=== PATIENT | female | born 1975 | race Caucasian/White ===

== ENCOUNTER → 2018-07-06 18:06 | Outpatient (CLI) | payer OTHER, SELFPAY ==
[2018-07-06 15:48] VITALS: BMI 27.3
[2018-07-09 08:22] LABS: HPV APTIMA, High Risk Negative (Negative)
== END ==
PROVIDERS: Referring Provider Obstetrics & Gynecology; Visit Provider Obstetrics & Gynecology
DX: Z12.4 Encounter for screening for malignant neoplasm of cervix (principal)
CPT/HCPCS: 87624; 88175; G0145

== ENCOUNTER 2019-02-28 15:32 | Emergency (ER) | payer OTHER, SELFPAY ==
[2018-07-06 15:48] VITALS: BMI 27.3
[2019-02-28 15:33] VITALS: BP 164/95; PULSE 97; RESP 19; TEMP 37.2; O2SAT 100; BMI 29.0
--- NOTE | 2019-02-28 16:54 | NURSING ---
NO OLD EKGS
--- NOTE | 2019-02-28 17:02 | EKG12_ITS ---
Test Reason : SYNCOPE Blood Pressure : / mmHG Vent. Rate : 095 BPM Atrial Rate : 095 BPM P-R Int : 158 ms QRS Dur : 088 ms QT Int : 348 ms P-R-T Axes : 049 038 056 degrees QTc Int : 437 ms Normal sinus rhythm Normal ECG Confirmed by SERVANDO GALLO, JAZMINE ([id number]), desk editor BHAVESH CHILDS ([id number]) on 03/02/2019 11:06:28 AM Referred By: WAYNE Confirmed By:JAZMINE AL MD
--- NOTE | 2019-02-28 17:02 | CT_ITS ---
STUDY: CT BRAIN WITHOUT CONTRAST REASON FOR EXAM: Female, 43 years old. Syncope, weakness RADIATION DOSAGE (If Supplied By Facility): CTDIvol = ( 44.99 ) mGy, DLP = ( 745.49 ) mGycm TECHNIQUE: Transaxial CT imaging of the brain was performed without administration of intravenous contrast material. Individualized dose optimization techniques were used for this CT. COMPARISON: No relevant priors. FINDINGS: Normal soft tissue structures. Normal calvarium. Normal size ventricles and extra-axial spaces for the patient's age. Normal white matter tracts of the cerebral hemispheres. Normal basal ganglia and thalami. Normal brainstem. Normal cerebellum. There is no intracranial hemorrhage. There are no findings of an acute ischemic infarction. There is a polypoid filling defect of the right maxillary sinus. CT/Brain/Head without Contrast IMPRESSION: Polypoid filling defect of the right maxillary sinus consistent with a mucoid retention cyst. There is no evidence of intracranial hemorrhage or acute infarct. Electronically Signed: Mason Connor MD at 17:49 EST , Service support ,
--- NOTE | 2019-02-28 17:04 | ED.DCSUM_ITS ---
History of Present Illness Chief Complaint: Syncope Detail of Chief Complaint: Syncope, generalized weakness Informant: Patient Onset: Yesterday Current Severity: Mild Maximum Severity: Mild Narrative: Patient states she got up in the middle the night last night to go check on her daughter. She was walking to her daughter's room she began to feel very funny and as if she might pass out. She turned around to go back to her room but reportedly fell to the floor. reportedly heard a thud and found her unconscious on the floor. He told her it took about 30 seconds for her to wake up. She states that she has a headache and just feels generally weak today. Past Medical History - Allergies and Home Meds Allergies/Adverse Reactions: Allergies No Known Allergies Allergy (Unverified 07/06/18 15:48) Prior records reviewed: Yes Past Medical History: - Lives: With Family Smoking Status: Never smoker Review of Systems General: Denies: Chills, Fever Eyes: Denies: Visual changes - bilaterally ENT: Denies: Bilateral ear pain, Sore throat Cardiovascular: Denies: Chest pain, Palpitations Respiratory: Denies: Dyspnea, Cough Gastrointestinal: Denies: Abdominal pain, Nausea, Vomiting, Diarrhea Musculoskeletal: Reports: Myalgias Neurological: Reports: Headache, Weakness - Generalized weakness Physical Exam Vital Signs/Narrative: Vital Signs Temp Pulse Resp BP Pulse Ox 02/28/19 15:33 98.9 F 97 19 H 164/95 H 100 Inital Vital Signs reviewed: Yes General: Well nourished, Well developed Head: - - Small hematoma to right upper forehead. ENT: Moist mucous membranes Neck: Supple Cardiovascular: Regular rate, Regular rhythm Respiratory: No distress, CTA bilaterally, Chest nontender Abdomen: Soft, Nontender Extremities: - - Abrasion to left anterior knee with no bony tenderness. Neurological: Alert, Oriented x3, Normal Strength, Normal Sensation Psychological: Normal affect Diagnostic/Tx/Re-eval Impressions Brain CT 02/28/19 17:02 IMPRESSION: Polypoid filling defect of the right maxillary sinus consistent with a mucoid retention cyst. There is no evidence of intracranial hemorrhage or acute infarct. Electronically Signed: Mason Connor MD at 17:49 EST , Service support , 02/28/19 17:02 Brain/Head without Contrast [CT] Stat Laboratory Results 02/28/19 02/28/19 02/28/19 17:21 17:21 18:22 WBC 7.4 RBC 4.80 Hgb 14.0 Hct 40.5 MCV 84.4 MCH 29.2 MCHC 34.6 RDW Std Deviation 37.7 RDW Coeff of Pee 12.5 Plt Count 257 MPV 10.5 Immature Gran % (Auto) 0.300 Neut % (Auto) 62.7 Lymph % (Auto) 28.3 [place] % (Auto) 6.9 Eos % (Auto) 1.5 Baso % (Auto) 0.3 Absolute Neuts (auto) 4.7 Absolute Lymphs (auto) 2.10 Nucleated RBC % 0 Sodium 140 Potassium 3.5 Chloride 108 H Carbon Dioxide 27.0 Anion Gap 5 BUN 9 Creatinine 0.70 Estim Creat Clear Calc 91.33 Est GFR (MDRD) Af Amer 119 Est GFR (MDRD) Non-Af 98 BUN/Creatinine Ratio 12.9 Glucose 98 Calcium 8.8 Urine Color Urine Clarity Urine pH Ur Specific Elizabeth Urine Protein Urine Glucose (UA) Urine Ketones Urine Occult Blood Urine Nitrite Urine Bilirubin Urine Urobilinogen Ur Leukocyte Esterase Urine RBC Urine WBC Ur Squamous Epith Cells Urine Bacteria Urine Mucus Urine Test Negative 02/28/19 18:22 WBC RBC Hgb Hct MCV MCH MCHC RDW Std Deviation RDW Coeff of Pee Plt Count MPV Immature Gran % (Auto) Neut % (Auto) Lymph % (Auto) [place] % (Auto) Eos % (Auto) Baso % (Auto) Absolute Neuts (auto) Absolute Lymphs (auto) Nucleated RBC % Sodium Potassium Chloride Carbon Dioxide Anion Gap BUN Creatinine Estim Creat Clear Calc Est GFR (MDRD) Af Amer Est GFR (MDRD) Non-Af BUN/Creatinine Ratio Glucose Calcium Urine Color Yellow Urine Clarity Clear Urine pH 8.0 Ur Specific Elizabeth 1.010 Urine Protein Negative Urine Glucose (UA) Normal Urine Ketones Negative Urine Occult Blood Negative Urine Nitrite Negative Urine Bilirubin Negative Urine Urobilinogen Normal Ur Leukocyte Esterase 25 H Urine RBC 0 SEEN Urine WBC 0-5 SEEN Ur Squamous Epith Cells 0-5 SEEN Urine Bacteria 0 SEEN Urine Mucus 0 SEEN Urine Test - EKG Initial EKG Interpretation: Sinus Rhythm - Sinus at 95 with no acute ischemia. - Medical Decision Making Patient declined IV fluids here. She is drinking p.o. Test results are discussed with her. At this time I see no serious cause for her syncopal event. She was encouraged to return if she feels worse or she develops palpitations. She will follow-up with her primary care physician. ED Disposition - Plan for ED Patient: Disposition: Home or Assisted Living Diagnosis: Syncope Instructions: SYNCOPE, Unk Cause Referrals: Madelaine Coello, REDUCING MACHINE OPERATOR-C [Primary Care Provider] - As soon as possible
--- NOTE | 2019-02-28 17:26 | ED.RN ---
PT REQUESTING TO HOLD OFF ON IV FLUIDS AT THIS TIME. DR VILLAREAL NOTIFIED
[2019-02-28 17:43] LABS: Absolute Neutrophil Count 4.7 X10^3/uL (2.0-7.7); Basophil# 0.02 X10^3/uL; Basophil% 0.3 % (0-1); Eosinophil# 0.11 X10^3/uL; Eosinophils% 1.5 % (0-5); Hematocrit 40.5 % (37-47); Lymphocyte % 28.3 % (19-41); Mean Corp Hgb Conc 34.6 g/dL (32-36); Mean Corpuscular Hgb 29.2 pg (27.0-32.0); Mean Corpuscular Volume 84.4 fL (81-99); Mean Platelet Vol. 10.5 fl (6.2-12.0); Monocyte# 0.51 X10^3/uL; Monocyte% 6.9 % (0-10); NRBC Flagged by Analyzer 0 % (0-5); Neutrophil # 4.67 X10^3/uL (2.7-7.7); Neutrophil % 62.7 % (47-70); Platelet Count 257 K/mm3 (150-450); RBC Distribution Width CV 12.5 % (11.6-14.6); RBC Distribution Width SD 37.7 fl (35.1-43.9); White Blood Count 7.4 K/mm3 (4.4-11.0)
[2019-02-28 17:45] LABS: Anion Gap 5 (5-15); BUN 9 mg/dL (7-18); BUN/Creat Ratio 12.9 RATIO (10-20); Calcium,Total 8.8 mg/dL (8.5-10.1); Chloride 108 mmol/L (98-107); EST Glomerular Filtration Rate 98 mL/min (>60); Est Glom Filt Rate - Afr Amer 119 mL/min (>60); Estimated Creatinine Clearance 91.33 ml/min; Glucose 98 mg/dL (74-106); Potassium 3.5 mmol/L (3.5-5.1); Sodium Level 140 mmol/L (136-145)
[2019-02-28 18:09] VITALS: BP 132/85; PULSE 97; RESP 19; O2SAT 98
[2019-02-28 18:31] LABS: Bacteria 0 SEEN /hpf (None Seen); Mucous, Urine 0 SEEN /hpf (<or=2+); Red Blood Cells-Urine 0 SEEN /hpf (0-5)
[2019-02-28 18:37] LABS: Internal QC Validated? YES +Cl - CLEAR BKGD; Pregnancy, Urine Negative Negative
[2019-02-28 19:01] LABS: Glucose, Dipstick Normal (Normal); Ketone-Dipstick Negative (Negative); Leukocyte Esterase-Dipstick 25 /ul (Negative); Nitrite-Dipstick Negative (Negative); Occult Blood-Urine Negative /ul (Negative); Protein-Dipstick Negative (Negative); Urine Bilirubin Dipstick Negative (Negative); Urine Urobilinogen Normal (Normal)
[2019-02-28 19:02] LABS: Color, Urine Yellow (Yellow); Urine Clarity Clear (Clear)
[2019-02-28 19:03] LABS: Squamous Epithelial Cells - UA 0-5 SEEN /hpf (5-10); White Blood Cells 0-5 SEEN /hpf (0-5)
[2019-02-28 19:27] VITALS: BP 117/70; PULSE 83; RESP 15; O2SAT 98
== END 2019-02-28 19:30 | disposition home or self-care (01) ==
PROVIDERS: Emergency Provider Emergency Medicine; Family Provider Nurse Practitioner Family; PCP Nurse Practitioner Family
DX: R55 Syncope and collapse (principal); R51 Headache; R53.1 Weakness; M79.10 Myalgia, unspecified site; S80.212A Abrasion, left knee, initial encounter; X58.XXXA Exposure to other specified factors, initial encounter; Y93.9 Activity, unspecified; Y92.9 Unspecified place or not applicable; Y99.9 Unspecified external cause status
CPT/HCPCS: 70450; 80048; 81001; 81025; 85025; 93005; 99284; A4216

== ENCOUNTER 2020-05-23 12:54 | Emergency (ER) | payer OTHER, SELFPAY ==
[2020-05-23 12:55] VITALS: BP 157/94; PULSE 114; RESP 17; TEMP 36.9; O2SAT 100; BMI 30.5
[2020-05-23 13:03] VITALS: BP 160/115; PULSE 115; RESP 17; O2SAT 100
--- NOTE | 2020-05-23 13:18 | RAD_ITS ---
STUDY: X-RAY CHEST REASON FOR EXAM: Female, 44 years old. CHEST TIGHTNESS TECHNIQUE: Single AP portable view of the chest. COMPARISON: Comparison is made with prior examination of 03/02/2017. FINDINGS: EKG electrodes are seen. The lungs are clear and expanded. There is no demonstrated pleural abnormality. Normal size heart. Normal mediastinum and keyla. Normal visualized pulmonary arteries. Normal visualized aortic arch and descending thoracic aorta. Normal visualized thoracic spine. Normal visualized ribs, clavicles, and shoulders. There is no demonstrated abnormality of the visualized soft tissue structures of the upper abdomen. RAD/Chest 1 View (Portable) IMPRESSION: Normal x-ray examination of the chest. Electronically Signed: Jeovany Anne MD at 13:58 EST , Service support ,
--- NOTE | 2020-05-23 13:18 | EKG12_ITS ---
Test Reason : CP Blood Pressure : / mmHG Vent. Rate : 117 BPM Atrial Rate : 117 BPM P-R Int : 128 ms QRS Dur : 084 ms QT Int : 312 ms P-R-T Axes : 014 036 053 degrees QTc Int : 435 ms Sinus tachycardia Otherwise normal ECG Confirmed by RUBY GALLO, MARBELLA ([id number]), editor farm journal BHAVESH CHILDS ([id number]) on 05/28/2020 11:03:59 AM Referred By: HUMBERTO Confirmed By:CAROLA BELTRAN MD
--- NOTE | 2020-05-23 13:19 | ED.VIS.GEN ---
History of Present Illness Chief Complaint: Chest Pain Informant: Patient Narrative: 44-year-old female presenting with chest pain which she describes as sharp and heavy at times. She states that it started yesterday at rest. States it feels like her heart is racing at times. Patient denies any medical problems except for allergies. She has the same cough she is always had without change. No fever, chills, body aches, loss of taste or smell. Patient has had no cardiac history or history of pulmonary embolism. Past Medical History - Allergies and Home Meds Allergies/Adverse Reactions: Allergies No Known Allergies Allergy (Verified 05/23/20 12:55) Primary Care Physician: NOT,DEFINED [NON-STAFF] - Prior records reviewed: Yes Past Medical History: None Surgical History: noncontributory Lives: Spouse/ Significant Other Smoking Status: Never smoker Alcohol: None Drugs: None Review of Systems General: Denies: Chills, Fever, Sweats Eyes: Denies: Visual changes - bilaterally, Diplopia ENT: Denies: Rhinorrhea, Sore throat Cardiovascular: Reports: Chest pain, Heart racing. Denies: Palpitations Respiratory: Denies: Dyspnea, Cough, Sputum Gastrointestinal: Denies: Abdominal pain, Nausea, Vomiting Genitourinary: Denies: Dysuria, Hematuria Musculoskeletal: Denies: Myalgias, Arthralgias, Back pain, Swelling, Extremity Pain Skin: Denies: Rash, Abscess Neurological: Denies: Headache, Weakness, Parasthesia, Numbness Psych: Denies: Depression, Anxiety Physical Exam Vital Signs/Narrative: Vital Signs Temp Pulse Resp BP Pulse Ox 05/23/20 13:03 115 H 17 160/115 H 100 05/23/20 12:55 98.4 F 114 H 17 157/94 H 100 Inital Vital Signs reviewed: Yes General: Well nourished, No Acute Distress Head: Normocephalic, Atraumatic Eyes: Perrl, EOMI ENT: Moist mucous membranes, No rhinorrhea Cardiovascular: Regular rate, Regular rhythm Respiratory: No distress, CTA bilaterally, Chest nontender Extremities: Nontender, No edema Skin: Normal color, No rash. Negative for: Cyanosis, Diaphoresis Neurological: Alert, Oriented x3, Cranial nerves II-XII grossly intact Psychological: Normal affect, Normal Mood Diagnostic/Tx/Re-eval - Rhythm Strip Rhythm Strip: Sinus Rhythm Rate: 117 - EKG Initial EKG Interpretation: Sinus Rhythm, No Acute Injury Pattern - Medical Decision Making 44-year-old female presenting with chest pain. She has had it since last night. Has been intermittent and is sometimes heavy and sometimes sharp stabbing. Patient had EKG performed on arrival which shows a sinus rhythm at 117/min without any signs of ischemic change as interpreted by myself. Chest x-ray shows no acute process as interpreted by myself. Radiology agrees. Lab work is unremarkable. Troponin negative. D-dimer is negative. Patient will have repeat troponin at 3-hour cris as well as EKG. Patient will be signed out to incoming ED doc for follow-up on this. If this is all normal patient will be discharged home in stable condition. Impression: 1. Chest pain ED Disposition - Plan for ED Patient: Referrals: NOT,DEFINED [NON-STAFF] -
[2020-05-23] MEDS: Aspirin 81 MG TAB.CHEW 324 MG PO (13:36)
[2020-05-23 13:45] LABS: Absolute Lymphocyte Count 1.44 X10^3/uL (0.83-4.51); Absolute Neutrophil Count 3.9 X10^3/uL (2.0-7.7); Basophil# 0.02 X10^3/uL; Basophil% 0.3 % (0-1); Eosinophil# 0.07 X10^3/uL; Eosinophils% 1.2 % (0-5); Hematocrit 41.4 % (37-47); Hemoglobin 14.4 g/dL (12.0-15.0); Lymphocyte # 1.44 X10^3/ul (4.0); Mean Corp Hgb Conc 34.8 g/dL (32-36); Mean Corpuscular Hgb 29.1 pg (27.0-32.0); Mean Corpuscular Volume 83.6 fL (81-99); Mean Platelet Vol. 10.4 fl (6.2-12.0); Monocyte# 0.35 X10^3/uL; Monocyte% 6.1 % (0-10); NRBC Flagged by Analyzer 0 % (0-5); Neutrophil # 3.88 X10^3/uL (2.7-7.7); Neutrophil % 67.2 % (47-70); Platelet Count 260 K/mm3 (150-450); RBC Distribution Width CV 12.5 % (11.6-14.6); RBC Distribution Width SD 37.8 fl (35.1-43.9); Red Blood Count 4.95 M/mm3 (4.2-5.4); White Blood Count 5.8 K/mm3 (4.4-11.0)
[2020-05-23 14:03] LABS: Anion Gap 5 (5-15); BUN 7 mg/dL (7-18); BUN/Creat Ratio 9.7 RATIO (10-20); Calcium,Total 8.6 mg/dL (8.5-10.1); Chloride 107 mmol/L (98-107); Creatinine, Serum 0.72 mg/dL (0.55-1.02); EST Glomerular Filtration Rate 94 mL/min (>60); Est Glom Filt Rate - Afr Amer 114 mL/min (>60); Glucose 94 mg/dL (74-106); Potassium 3.2 mmol/L (3.5-5.1); Sodium Level 139 mmol/L (136-145)
[2020-05-23 14:37] LABS: D-Dimer Quantitative (DVT/PE) <= 0.27 FEU/ug/m (0.27-0.49)
[2020-05-23 14:56] VITALS: BP 133/93; PULSE 89; RESP 14; O2SAT 97
--- NOTE | 2020-05-23 16:45 | EKG12_ITS ---
Test Reason : REPEAT CP Blood Pressure : / mmHG Vent. Rate : 086 BPM Atrial Rate : 086 BPM P-R Int : 134 ms QRS Dur : 086 ms QT Int : 364 ms P-R-T Axes : -07 014 038 degrees QTc Int : 435 ms Normal sinus rhythm Normal ECG Confirmed by RUBY GALLO, MARBELLA ([id number]), general expeditor BHAVESH CHILDS ([id number]) on 05/28/2020 11:09:19 AM Referred By: HUMBERTO Confirmed By:CAROLA BELTRAN MD
[2020-05-23 17:23] VITALS: BP 144/106; PULSE 94; RESP 16; O2SAT 98
--- NOTE | 2020-05-23 17:24 | ED.RN ---
IV DC'ED, CATHETER INTACT, SMALL GAUZE DRESSING PLACED. DISCHARGE INSTRUCTIONS GIVEN TO AND REVIEWED WITH PATIENT, PATIENT DENIES QUESTIONS OR CONCERNS AND VOICES UNDERSTANDING OF DISCHARGE INSTRUCTIONS. PT AMBULATES OUT OF ROOM WITHOUT DIFFICULTY.
== END 2020-05-23 17:24 | disposition home or self-care (01) ==
PROVIDERS: Student in an Organized Health Care Education/Training Program; Emergency Provider Emergency Medicine
DX: R07.89 Other chest pain (principal); R05 Cough
CPT/HCPCS: 71045; 80048; 84484; 85025; 85379; 93005; 99285; A4216

== ENCOUNTER → 2021-01-10 15:59 | Outpatient (CLI) | payer OTHER, SELFPAY ==
--- NOTE | 2021-01-10 16:06 | BI_ITS ---
MAMMOGRAPHY - BILATERAL SCREENING REASON FOR EXAM: Female, 45 years old. Routine annual screening examination. PERTINENT HISTORY: Grandmother with breast cancer. TECHNIQUE: Digital bilateral breast lai (3D mammographic acquisition) in the CC and MLO projections. 2-D mediolateral oblique (MLO) and craniocaudad (CC) views of both breasts were obtained. CAD: Full Field Digital Mammography with Computer Added Detection was performed. COMPARISON: None. Baseline examination. FINDINGS: Breast Composition: The breasts are heterogeneously dense, which may obscure small masses. There are no dominant masses or suspicious calcifications. Benign-appearing bilateral axillary lymph nodes. No other significant abnormalities are identified. BI/SCRN MAMM (CAD)W/LAI BILAT IMPRESSION: Negative screening mammogram. Yearly followup mammogram recommended. (A) ASSESSMENT CATEGORY: BIRADS Category 2: Benign. A letter regarding these results will be sent to the patient by the facility within 30 days. Approximately 10% of breast cancers are not detected by mammography. A normal mammogram should not delay biopsy of a clinically suspicious abnormality. [id number] Electronically Signed: Jeovany Anne MD at 9:07 EDT , Service support ,
== END ==
DX: Z12.31 Encounter for screening mammogram for malignant neoplasm of breast (principal); Z80.3 Family history of malignant neoplasm of breast
CPT/HCPCS: 77063; 77067

== ENCOUNTER → 2023-07-06 | Outpatient (CLI) | payer OTHER, SELFPAY ==
--- NOTE | 2023-07-06 13:15 | RAD_ITS ---
INDICATION: pain EXAMINATION/TECHNIQUE: X-RAY - LEFT XR Knee 3 VIEWS COMPARISON: No relevant prior comparison study available FINDINGS: SOFT TISSUES: No soft tissue swelling or gas. No radiopaque foreign body. BONES/JOINTS: No acute fracture or subluxation.. Normal alignment. Preservation of the joint space.. No sclerotic or destructive changes observed. RAD/Knee 3 Views IMPRESSION: Negative. Electronically Signed: Kavitha Hearn MD at 14:20 EDT ,
--- OUTSIDE RECORDS SUMMARY | 2023-07-06 18:43 | XMS RPT_ITS | CCD ---
Author Name Unknown Address [address] [place] [id number] Organization [facility] Results Test Name Value Interpretation Reference Range Facil ity Summary Purpose Family History No Family History Records Found Advance Directives No Advanced Directives Records Found Additional Source Comments INFORMATION SOURCE (unrecogn ized section and content) FOR RECORDS PERTAINING TO PATIENTS WHO ARE OR HAVE BEEN ENROLLED IN A CHEMICAL DEPENDENCY/SUBSTANCEABUSE PROGRAM, SOME INFORMATION MAY BE OMITTED. This clinical summary was aggregated from multiple sources. Caution should be exercised in using it in the provision of clinical care. This summary normalizes information from multiple sources, and as a consequence, information in this document may materially change the coding, format and clinical context of patient data. In addition, data may be omitted in some cases. CLINICAL DECISIONS SHOULD BE BASED ON THE PRIMARY CLINICAL RECORDS. [employer] provides no warranty or guarantee of the accuracy or completeness of information in this document.
== END | disposition home or self-care (01) ==
PROVIDERS: Referring Provider Physician Assistant; Visit Provider Physician Assistant
DX: M25.562 Pain in left knee (principal)
CPT/HCPCS: 73562

== ENCOUNTER → 2023-09-28 | Outpatient (CLI) | payer OTHER, SELFPAY ==
--- NOTE | 2023-09-28 08:25 | RAD_ITS ---
STUDY: X-RAY - ESOPHAGUS (BARIUM SWALLOW) WITH FLUOROSCOPY REASON FOR EXAM: Female, 48 years old. Gastro-esophageal reflux disease without esophagitis TECHNIQUE: 20 view(s) of the esophagus were obtained following swallowing of barium. FLUOROSCOPY TIME (if supplied): (30 seconds) minutes/seconds. 13.26 mGy. COMPARISON: None. FINDINGS: There is no demonstrated esophageal foreign body. There is no demonstrated stricture or mucosal abnormality. Normal gastroesophageal junction, without a demonstrated hiatal hernia. The patient ingested a 12 mm tablet of barium without any difficulty. Normal visualized aortic arch and descending thoracic aorta. Normal visualized pulmonary parenchyma. Normal visualized osseous structures of the thorax. RAD/Esophagus Dual Contrast IMPRESSION: Normal plain film x-ray examination (barium swallow) of the esophagus. Electronically Signed: Jeovany Anne MD at 11:07 EDT ,
== END | disposition home or self-care (01) ==
LOC: RAD 08:16
PROVIDERS: Referring Provider Nurse Practitioner Family; Visit Provider Nurse Practitioner Family
DX: K21.9 Gastro-esophageal reflux disease without esophagitis (principal); Z80.3 Family history of malignant neoplasm of breast
CPT/HCPCS: 74221

== ENCOUNTER → 2023-12-31 | Outpatient (CLI) | payer OTHER, SELFPAY ==
--- NOTE | 2023-12-31 09:41 | BI_ITS ---
MAMMOGRAPHY - BILATERAL SCREENING REASON FOR EXAM: Female, 48 years old. Routine annual screening examination. PERTINENT HISTORY: Grandmother with breast cancer. TECHNIQUE: Digital bilateral breast lai (3D mammographic acquisition) in the CC and MLO projections. 2-D mediolateral oblique (MLO) and craniocaudad (CC) views of both breasts were obtained. CAD: Full Field Digital Mammography with Computer Added Detection was performed. COMPARISON: Comparison is made with prior study of January 10, 2021. FINDINGS: Breast Composition: The breasts are heterogeneously dense, which may obscure small masses. There is a 6.6 mm x 10.7 mm well-defined nodule in the slightly upper lateral aspect of the right breast. Correlation with ultrasound is recommended for further evaluation. Stable benign appearing bilateral axillary lymph nodes. No other significant abnormalities are identified. BI/SCRN MAMM (CAD)W/LAI BILAT IMPRESSION: 6.6 mm x 10.7 mm well-defined nodule in the slightly upper lateral aspect of the right breast as described. Correlation with ultrasound recommended. ASSESSMENT CATEGORY: BIRADS Category 0: Incomplete. Need additional imaging evaluation. A letter regarding these results will be sent to the patient by the facility within 30 days. Approximately 10% of breast cancers are not detected by mammography. A normal mammogram should not delay biopsy of a clinically suspicious abnormality. [id number] Electronically Signed: Jeovany Anne MD at 10:24 EDT ,
== END | disposition home or self-care (01) ==
PROVIDERS: Referring Provider Nurse Practitioner Family; Visit Provider Nurse Practitioner Family
DX: Z12.31 Encounter for screening mammogram for malignant neoplasm of breast (principal)
CPT/HCPCS: 77063; 77067

== ENCOUNTER → 2024-01-21 | Outpatient (CLI) | payer OTHER, SELFPAY ==
--- NOTE | 2024-01-21 09:30 | US_ITS ---
STUDY: ULTRASOUND BREAST - RIGHT REASON FOR EXAM: Female, 48 years old. Abnormal screening mammogram. TECHNIQUE: Axial and longitudinal images of the RIGHT breast were performed with a high resolution ultrasound transducer. # OF IMAGES: 23 COMPARISON: Comparison is made with prior mammogram dated December 31, 2023. FINDINGS: RIGHT Breast: The mammographic abnormality corresponds to a 7 mm x 7 mm x 4 mm cyst at the 9:00 position of the breast at 5 cm from the nipple. Routine mammographic follow-up recommended. US/Breast Limited Unilateral IMPRESSION: The mammographic abnormality corresponds to a 7 mm x 7 mm x 4 mm cyst at the 9:00 position of the breast at 5 cm from the nipple. ASSESSMENT CATEGORY: BIRADS Category 2: Benign. A letter regarding these results will be sent to the patient by the facility within 30 days. Electronically Signed: Jeovany Anne MD at 11:14 EDT ,
== END | disposition home or self-care (01) ==
PROVIDERS: Referring Provider Nurse Practitioner Family; Visit Provider Nurse Practitioner Family
DX: R92.2 Inconclusive mammogram (principal)
CPT/HCPCS: 76642

== ENCOUNTER → 2025-02-28 | Outpatient (CLI) | payer OTHER, SELFPAY ==
--- NOTE | 2025-02-28 09:29 | RAD_ITS ---
PROCEDURE: RAD/Ankle min 3 Views
== END | disposition home or self-care (01) ==
PROVIDERS: Referring Provider Physician Assistant; Visit Provider Physician Assistant
DX: M25.572 Pain in left ankle and joints of left foot (principal)
CPT/HCPCS: 73610